=== PATIENT | female | born 1955 | race Caucasian/White ===

== ENCOUNTER 2020-10-18 14:20 | Inpatient (IN) | payer BC ==
[~2020-10-18] VITALS: Ht 154.9 cm; Wt 79.8 kg
--- NOTE | 2020-10-18 15:00 | NUR ---
bib self C/O STABBING PAIN ON RIGHT AND LEFT CALF LAST NIGHT, HAD TROUBLE WALKING. vs checked.
--- NOTE | 2020-10-18 16:21 | NUR ---
COVID SWAB SENT TO LAB
[2020-10-18 16:22] LABS: BASOPHILS # (AUTO) 0.6 /CMM (0.0-0.2); BASOPHILS % (AUTO) 4.2 % (0.0-2.0); EOSINOPHILS % (AUTO) 0.9 % (0.0-6.0); HEMATOCRIT 46 % (33-45); HEMOGLOBIN 15.4 g/dL (11.5-14.8); LYMPHOCYTES % (AUTO) 7.9 % (20.0-44.0); MEAN CORPUSCULAR HGB CONC 34 g/dl (31.0-36.0); MEAN CORPUSCULAR VOLUME 91 fL (82-100); MONOCYTES # (AUTO) 0.6 /CMM (0.1-1.30); MONOCYTES % (AUTO) 4.5 % (2.0-12.0); NEUTROPHILS # (AUTO) 10.8 /CMM (1.8-8.9); NEUTROPHILS % (AUTO) 82.5 % (43.0-81.0); PLATELET COUNT (AUTO) 314 /CMM (150-450); RED BLOOD CELL COUNT(AUTO) 5.05 MIL/uL (4.0-5.2); WHITE BLOOD COUNT (AUTO) 13.1 K/uL (4.3-11.0)
[2020-10-18 16:34] LABS: CALCIUM, SERUM 9.9 mg/dL (8.5-10.1); CARBON DIOXIDE 24 mmol/L (21-32); CHLORIDE 105 mmol/L (98-107); GLUCOSE 110 mg/dL (74-106); POTASSIUM 4.2 mmol/L (3.5-5.1); SODIUM SERUM 140 mmol/L (136-145); UREA NITROGEN, BLOOD 11 mg/dL (7-18)
[2020-10-18] MEDS ORDERED: IOHEXOL-350 100 ML VIAL IV ONE (17:32)
[2020-10-18] MEDS ORDERED: CT SWABBABLE VALVE TRANS SET 1 EA INFUS.SET MC ONE (17:33)
[2020-10-18] MEDS ORDERED: IV NS 0.9% 250 ML IV ONE (17:33)
--- NOTE | 2020-10-18 18:34 | NUR ---
CALLED KATIE ADAME REACHED JUKE BOX MECHANIC [phone]
--- NOTE | 2020-10-18 19:23 | NUR ---
covid swab done sent to lab
[2020-10-18] MEDS ORDERED: HEPARIN INFUSION/D5W 500 ML IV ONE (19:30)
[2020-10-18] MEDS ORDERED: Z GUARD REMEDY 2 OZ OINT TP PRN (20:30)
[2020-10-18] MEDS ORDERED: MAGNESIUM HYDROXIDE 30 ML UDC PO PRN (20:30)
[2020-10-18] MEDS ORDERED: HEPARIN INFUSION/D5W 500 ML IV PRN (20:30)
[2020-10-18] MEDS ORDERED: ACETAMINOPHEN 325 MG TABLET PO PRN (20:30)
[2020-10-18] MEDS ORDERED: MAG HYDROX/AL HYDROX/SIMETH 30 ML UDC PO PRN (20:30)
[2020-10-18] MEDS ORDERED: ONDANSETRON HCL/PF 4 MG/2 ML VIAL IVP PRN (20:30)
--- NOTE | 2020-10-18 20:30 | NUR ---
call from lab. rapid covid negative.
[2020-10-18 21:09] LABS: C-REACTIVE PROTEIN 4.9 mg/dL (0.0-0.9)
--- NOTE | 2020-10-18 22:18 | NUR ---
REPORT GIVEN TO ANASTASIYA CABEZAS FOR ANABEL.
[2020-10-18 22:25] VITALS: BP 142/81
--- NOTE | 2020-10-18 22:31 | NUR ---
PATIENT TAKEN TO ASSIGNED ROOM FOR ANABEL.
[2020-10-18] MEDS ORDERED: DIAZ2TAB3 PO (23:17)
[2020-10-18] MEDS ORDERED: METO25TA4 PO (23:17)
[2020-10-18 23:18] VITALS: BP 142/81
--- NOTE | 2020-10-18 23:18 | NUR ---
COMMISSION ASSOCIATE: ADMISSION 65 year old female A/O x4. Skin intact. Independent with ADLs and mobility, denies any pain at this time. Reports SOB, improved with rest and supplemental Oxygen at 2L via NC. Place call light within reach, instructed on how to use, verbalized understanding.
[2020-10-19] VITALS (7 sets, daily range): BP systolic 118–141; BP diastolic 54–81
[2020-10-19] MEDS ORDERED: ESTR1PAT86 TD (00:26)
[2020-10-19] MEDS ORDERED: PROG100C15 PO (00:26)
[2020-10-19] MEDS ORDERED: MESA500C PO ×2 (00:26)
[2020-10-19] MEDS ORDERED: HYOS0.1275 SL (00:26)
[2020-10-19] MEDS ORDERED: RIFA550T PO (00:26)
[2020-10-19] MEDS ORDERED: ESTR1PAT23 TD (00:26)
[2020-10-19] MEDS ORDERED: CETI-90 PO (00:32)
--- NOTE | 2020-10-19 00:48 | NUR ---
WIRE PREPARATION WORKER: HEPARIN INFUSION Heparin drip infusing at 29ml/hr. Heparin dosing calculated per weight-base protocol, co-signed by RAULITO Garsia.
--- NOTE | 2020-10-19 02:16 | NUR ---
DOCKING PILOT: APTT PTT 69.4. No change per Heparin protocol. Continue on Heparin drip at rate 29ml/hr 1450 units/hr. Next APPT PT/INR 10/19/20 at 1400, lab informed.
--- NOTE | 2020-10-19 06:26 | NUR ---
LOKIE DRIVER: END OF SHIFT REPORT Sinus Rhythm HR 76 in the Tele monitor. Oxygen sat 96% on room air, shortness of breath with exertion improved with Oxygen 2L via NC. No c/o chest pain. Heparin drip infusing at 29ml/hr. No hematuria, no bleeding. Next APTT at 1400. Will endorse to oncoming RN.
[2020-10-19 07:06] LABS: BASOPHILS # (AUTO) 0.1 /CMM (0.0-0.2); BASOPHILS % (AUTO) 0.7 % (0.0-2.0); EOSINOPHILS % (AUTO) 3.9 % (0.0-6.0); HEMATOCRIT 44 % (33-45); HEMOGLOBIN 14.6 g/dL (11.5-14.8); LYMPHOCYTES # (AUTO) 3.2 /CMM (0.8-4.8); LYMPHOCYTES % (AUTO) 30.2 % (20.0-44.0); MEAN CORPUSCULAR HGB CONC 33 g/dl (31.0-36.0); MEAN CORPUSCULAR VOLUME 92 fL (82-100); MONOCYTES % (AUTO) 9.7 % (2.0-12.0); NEUTROPHILS # (AUTO) 5.8 /CMM (1.8-8.9); NEUTROPHILS % (AUTO) 55.5 % (43.0-81.0); PLATELET COUNT (AUTO) 274 /CMM (150-450); RED BLOOD CELL COUNT(AUTO) 4.84 MIL/uL (4.0-5.2); WHITE BLOOD COUNT (AUTO) 10.4 K/uL (4.3-11.0)
[2020-10-19 07:18] LABS: CALCIUM, SERUM 9.3 mg/dL (8.5-10.1); MAGNESIUM 2.6 mg/dL (1.8-2.4); PHOSPHORUS 4.3 mg/dL (2.5-4.9); POTASSIUM 3.6 mmol/L (3.5-5.1)
[2020-10-19 07:36] LABS: THYROID STIMULATING HORMONE 7.413 uIU/mL (0.358-3.74)
--- NOTE | 2020-10-19 08:00 | NUR ---
RN NOTES PT RECEIVED ALERT IN BED ORIENTED X4 NO SIGNS OF PAIN OR DISCOMFORT NOTED OR REPORTED. NO SIGHS OF SOB NOTED. ON 2 L OF OXYGEN VIA NASAL CANULA.. PATIENT HAS A LEFT ARM AC IV ACCESS NO PAIN SWELLING OR REDNESS NOTED. CALL LIGHT WITHIN REACH BED LOCKED IN POSITION. ALL NURSING NEEDS MET AT THIS TIME. WILL CONTINUE TO MONITOR
--- NOTE | 2020-10-19 08:31 | NUR ---
OFFERED ZITHROMAX 250 MG TAB SCANNED AND PT REFUSED. AWAITING FOR RUDDY DOUGHERTY FOR PT'S CLARIFICATION. RUDDY DOUGHERTY MADE AWARE. PT HAS QUESTIONS ABOUT HER HOME MEDS AND WANTS TO SEE THE HOSPITALIST TO CLARIFY HER MEDS.NOTIFIED RUDDY DOUGHERTY.
[2020-10-19] MEDS: PANTOPRAZOLE 40 MG TABLET.DR PO SCH (09:34)
[2020-10-19] MEDS: AZITHROMYCIN 250 MG TABLET PO SCH ×2 (09:34→20:39)
--- NOTE | 2020-10-19 11:00 | NUR ---
WASTED THE ZITHROMAX 250 MG PILL.
--- NOTE | 2020-10-19 12:00 | NUR ---
NOTIFIED RUDDY DOUGHERTY OF PT'S MED RECON NEEDING TO BE DONE AND ALSO,PT'S CONCERN ABOUT HER HOME MEDS,WANTING TO DISCUSS IT WITH HOSPITALIST.RUDDY DOUGHERTY MADE AWARE.
--- NOTE | 2020-10-19 14:00 | NUR ---
DR ESPINOZA CALLED AND ORDERED ELIQUIS PO BID AND TO STOP HEPARIN DRIP TWO HRS BEFORE ADMINISTERING ELIQUIS PO.NOTIFIED YESY,PHARMACIST AND MADE AWARE WELL.
--- NOTE | 2020-10-19 16:35 | NUR ---
PAGED AND CALLED RUDDY DOUGHERTY 3X FOR PT'S CONCERNS REGARDING HER HOME MEDS AND MED RECONCILIATION.PT'S DAUGHTER,GUS CALLED AND EXPRESSED THE SAME CONCERN.PAGED RUDDY DOUGHERTY AWAITING TO RETURN CALL.
--- NOTE | 2020-10-19 17:36 | NUR ---
PT STILL WAITING FOR THE DOCTOR TO LCLARIFY HER MEDS.NOTIFIED RUDDY DOUGHERTY 3X AWAITING HOSPITALIST TO SEE THE PT
[2020-10-19] MEDS: APIXABAN 5 MG TABLET PO SCH (17:39)
--- NOTE | 2020-10-19 18:17 | NUR ---
RN NOTES PT RECEIVED ALERT IN BED ORIENTED X4 NO SIGNS OF PAIN OR DISCOMFORT NOTED OR REPORTED. NO SIGHS OF SOB NOTED. ON 2 L OF OXYGEN VIA NASAL CANULA.. PATIENT HAS A LEFT ARM AC IV ACCESS NO PAIN SWELLING OR REDNESS NOTED.CALL LIGHT WITHIN REACH BED LOCKED IN POSITION. ALL NURSING NEEDS MET AT THIS TIME. WILL CONTINUE TO MONITOR.
--- NOTE | 2020-10-19 18:59 | NUR ---
Patient is alert and pleasant,lives locally alone in a single level home. She is ambulatory and independent with adl's . Family is involved and supportive. Current dc plan is to return home once discharge. Addendum: 10/19/20 at 1859 by GURPREET RODRÍGUEZ RN Amended: Links added.
[2020-10-19] MEDS ORDERED: HYDROCODONE/APAP 5/325MG TABLET PO PRN (19:00)
[2020-10-19] MEDS ORDERED: TEMAZEPAM 15 MG CAPSULE PO PRN (19:00)
[2020-10-19] MEDS ORDERED: HYOSCYAMINE SULFATE 0.125 MG TAB.SUBL SL PRN (19:00)
--- NOTE | 2020-10-19 19:15 | NUR ---
RN NOTES: RECEIVED AWAKE ON BED LYING COMFORTABLY A/OX4, ORIENTED TO UNIT AND STAFF. FALL,SAFETY AND ASPIRATION PRECAUTION OBSERVED, ON CREDIT RISK REVIEW OFFICER SR-88, NO PAIN OR DISCOMFORT, CONTINUE TO OBSERVED FOR ANY SIGN OF RESPIRATORY DISTRESS OR SOB, PATIENT COMMUNICATE WELL AND EXPRESS HER CONCERN REGARDING HER MEDICATION. -SHE PREFER TO TAKE PENTASA NOT MESALAMINE. Addendum: 10/19/20 at 2158 by ABHILASH JEWELL RN ADDED NOTES: ON O2 AT 2L/MIN SPO2-95%
[2020-10-19] MEDS ORDERED: DIAZEPAM 5 MG TABLET PO PRN (19:30)
--- NOTE | 2020-10-19 19:30 | NUR ---
RN NOTES: PHARMACY CALLED SPOKE WITH MARLENY AND EXPLAINED TO HIM PATIENT REQUEST AND PREFERRED NAME BRAND PENTASA, HE EXPLAINED WE DONT HAVE AVAILABLE OF WHAT SHE WANT BUT SHE CAN BRING HER OWN MEDICATION AND WE CAN VERIFY AND GIVE IT TO HER. -PATIENT AGREED AND SHE WILL ASK ONE OF HER FAMILY MEMEBER TO BRING IT BEFORE 2100.
[2020-10-19] MEDS ORDERED: MESALAMINE 250 MG CAPSULE.SA PO SCH (20:00)
--- NOTE | 2020-10-19 20:08 | NUR ---
RN NOTES: PATIENT CLAIMED THAT SHE DID NOT RECEIVED HER AZITHROMAX DOSE THIS MORNING BECAUSE SHE WAS HESITANT TO TAKE IT, AFTER VERIFYING WITH HER RELATIVE WHO IS A DOCTOR NOW SHE IS REQUESTING TO GET HER DOSE. -F/U WITH TIANA/RN IN THE MORNING IF MEDICATION WAS GIVEN AND SHE SAID"PATIENT REFUSED, SHE WAS WAITING FOR FARHAT TO SEE HER" -CALLED PHARMACY SPOKE WITH MARLENY AND CONFIRMED TO HIM, MEDICATION WAS NOT GIVEN IN THE MORNING, IF HE CAN RELEASE THE MEDICATION SO THAT WE CAN GIVE IT PER PATIENT REQUEST.
[2020-10-19] MEDS: METOPROLOL SUCCINATE 25 MG TAB.SR.24H PO SCH (20:38)
[2020-10-19] MEDS: RIFAXIMIN 550 MG TABLET PO SCH (20:38)
--- NOTE | 2020-10-19 20:40 | NUR ---
RN NOTES: PATIENT REQUEST TO TAKE HER NORCO NOW FOR HEADACHE ALONG WITH HER OTHER MEDICATION, BP CHECKED--137/74 WI-78, METOPROLOL,XIFACAN AND AZITHROMAX(PHARMACY AWARE MORNING DOSE WAS NOT GIVEN, PATIENT WANT HER DOSE NOW) GIVEN.
--- NOTE | 2020-10-19 20:58 | NUR ---
RN NOTES: FAMILY BROUGHT PATIENT OWN MEDICATION PENTAZA(MESALAMINE) 1 BOTTLE, GIVEN TO PHARMACY FOR VERIFICATION, RECEIVED BY MARLENY.AWAITNG FOR PHARMACY TO DELIVER BACK IN MS-3W.
[2020-10-19] MEDS ORDERED: PENTASA 500 MG PO SCH (21:00)
[2020-10-19] MEDS ORDERED: MESALAMINE 400 MG CAP PO SCH (21:00)
--- NOTE | 2020-10-19 21:23 | NUR ---
RN NOTES: PATIENT MEDICATION PENTASA RELEASED BY PHARMACY, GIVEN ALONG WITH VALIUM 1/2 TABLET PER PATIENT REQUEST.
--- NOTE | 2020-10-19 21:30 | NUR ---
RN NOTES: PATIENT EXPRESS HER GRATITUDE THAT HER MEDICATION WAS FACILITATED, EXPLAINED TO HER PENTAZA WILL BE RELEASED DAILY AND SHE CAN GET HER MEDICATION BACK UPON HER DISCHARGE DAY.
--- NOTE | 2020-10-19 21:31 | NUR ---
RN NOTES: -AT 1999 ROD NOTIFIED PATIENT REQUEST FOR MTHFR TEST, SHE EXPLAINED THAT HER BROTHER HAS THAT DEFICIENCY, SHE WANTS TO BE CHECKED ALSO, ROD SAID WILL LET DR. ROBERTSON SEE HER FIRST THEN WILL DECIDE FOR MORE EXTENSIVE HYPERCOAGULABLE WORK OUT. -WILL ENDORSED TO F/U IN THE MORNING.
--- NOTE | 2020-10-19 21:58 | NUR ---
SALES AND MARKETING VICE PRESIDENT CONTINUITY OF CARE NOTES RECEIVED PATIENT FROM RN CHEMO, AWAKE ALERT AND ORIENTED X4 RESPIRATIONS EVEN AND UNLABORED WITH EQUAL RISE AND FALL OF CHEST, DENIES ANY PAIN AT THIS TIME, STATES NORCO THAT WAS GIVEN IS HELPFUL. IV SITE TO LEFT AC#20 G INTACT AND PATENT NO REDNESS, NO INFILTRATION PRESENT, ORIENTED TO STAFF AND CALL LIGHT AND KEPT WITHIN REACH LOW BED AND LOCKED, SNACKS OFFERED, ALL NEEDS ATTENDED WILL CONTINUE TO MONITOR.
--- NOTE | 2020-10-19 21:58 | NUR ---
RN NOTES: ENDORSE TO RAJAN/RAULITO FOR CONTINUITY OF CARE.
[2020-10-20] VITALS: BP 105/61
[2020-10-20 04:00] VITALS: BP 112/70
--- NOTE | 2020-10-20 06:43 | NUR ---
SCAFFOLDING HELPER CLOSING NOTES PATIENT IN BED AWAKE ALERT AND ORIENTED X4 RESPIRATIONS EVEN AND UNLABORED WITH EQUAL RISE AND FALL OF CHEST, DENIES ANY PAIN AT THIS TIME. IV SITE TO LEFT AC#20 G INTACT AND PATENT NO REDNESS, NO INFILTRATION PRESENT, CURRENTLY ON ROOM AIR TOLERATING WELL 95 %, CALL LIGHT KEPT WITHIN REACH LOW BED AND LOCKED, UA COLLECTED PLACED IN FRIG FOR NEW GRAD RN,SNACKS OFFERED, ALL NEEDS ATTENDED WILL CONTINUE TO MONITOR AND ENDORSE TO NEXT SHIFT, CUSTOMER ENGAGEMENT REPRESENTATIVE SR 68.
--- NOTE | 2020-10-20 07:30 | NUR ---
RADIOTELEGRAPH OPERATOR SERVICER OPENING NOTES BEDSIDE ENDORSEMENT DONE. PATIENT IS IN BED RESTING, AWAKE AND VERBALLY RESPONSIVE. ALERT AND ORIENTED X4, ABLE TO MAKE NEEDS KNOWN. BREATHING EVEN AND UNLABORED. IV SITE TO LEFT AC #20 INTACT AND PATENT. SAFETY PRECS IN PLACE: BED LOCKED AND ON LOWEST POSITION, CALL LIGHT W/IN REACH, SR UP X2. WILL CONTINUE TO MONITOR.
[2020-10-20 08:00] VITALS: BP 127/74
[2020-10-20 08:59] LABS: BILIRUBIN,URINE NEGATIVE (NEGATIVE); BLOOD, URINE TRACE-INTA Ery/uL (NEGATIVE); COLOR,URINE DARK YELLOW (YELLOW); LEUKOCYTE ESTERASE ,URINE TRACE (NEGATIVE); NITRITE, URINE NEGATIVE (NEGATIVE); PH,URINE 5.5 (5.0-8.0); PROTEIN,URINE NEGATIVE (NEGATIVE); UGLUCOSE NEGATIVE (NEGATIVE); UROBILINOGEN,URINE 0.2 EU/dL (0.2)
[2020-10-20] MEDS ORDERED: cetrizine 10 MG TABLET PO SCH (09:00)
[2020-10-20] MEDS ORDERED: CITRUCEL PO SCH (09:00)
[2020-10-20 09:05] LABS: BACTERIA,URINE Few /HPF (None Seen); RBC,URINE 0-2 /HPF (0-2); YEAST,URINE Rare /HPF (None Seen)
[2020-10-20 09:06] LABS: SQUAMOUS EPITHELIAL CELL,UR Moderate /HPF (None Seen)
[2020-10-20] MEDS: RIFAXIMIN 550 MG TABLET PO SCH ×2 (09:52→17:01)
[2020-10-20] MEDS: METOPROLOL SUCCINATE 25 MG TAB.SR.24H PO SCH (09:53)
[2020-10-20] MEDS: APIXABAN 5 MG TABLET PO SCH ×2 (09:55→17:02)
[2020-10-20] MEDS: PANTOPRAZOLE 40 MG TABLET.DR PO SCH (09:57)
[2020-10-20] MEDS ORDERED: TEMA15CA5 PO (10:24)
[2020-10-20] MEDS ORDERED: OMEP20TA20 PO (10:24)
[2020-10-20] MEDS ORDERED: HYDR-4384 PO (10:24)
[2020-10-20] MEDS ORDERED: BUTA1CAP5 PO (10:48)
--- NOTE | 2020-10-20 13:00 | NUR ---
RN NOTES PATIENT WAS SEEN EARLIER BY DR. OLIVARES AND PROVIDED EDUCATION AND INSTRUCTIONS REGARDING MEDICATIONS AND DISCHARGE.
[2020-10-20 16:00] VITALS: BP 145/88
--- NOTE | 2020-10-20 19:38 | NUR ---
LEAD TECHNICAL ARCHITECT NOTES DISCHARGE INSTRUCTION AND EDUCATION GIVEN TO PATIENT; VERBALIZED UNDERSTANDING. BELONGINGS LIST AND DISCHARGE FORM SIGNED BY PATIENT. PROVIDED INFORMATION OF DR. HERNANDEZ AND DR. ROBERTSON FOR INTERNAL MEDICINE AND ONCO CONSULT, RESPECTIVELY. NAME ARMBAND AND IV LINE REMOVED. NO SKIN ISSUES NOTED. ACCOMPANIED PATIENT TO THE LOBBY AND PICKED UP BY FAMILY. CHARGE NURSE AND MD AWARE OF DISCHARGE.
[2020-10-23 07:10] LABS: PROTEIN C ACTIVITY 140 % (73-180)
[2020-10-24 01:06] LABS: *CARD ANTI-CARDIOLIPIN AB IgG <9 GPL U/mL (0-14); *CARD ANTI-CARDIOLIPIN AB IgM 9 MPL U/mL (0-12)
[2020-10-26] MEDS ORDERED: APIXABAN 5 MG TABLET PO SCH (17:00)
== END 2020-10-20 19:10 | disposition home or self-care (01) | DRG 176 ==
LOC: ER 14:22 → TELE 21:30
PROVIDERS: ADMIT Registered Nurse; ATTEND Nurse Practitioner Acute Care
DX: I26.99 Other pulmonary embolism without acute cor pulmonale (principal); J90 Pleural effusion, not elsewhere classified; K50.90 Crohn's disease, unspecified, without complications; D72.829 Elevated white blood cell count, unspecified; E04.1 Nontoxic single thyroid nodule; E66.9 Obesity, unspecified; Z68.34 Body mass index [BMI] 34.0-34.9, adult; I10 Essential (primary) hypertension; Z91.018 Allergy to other foods; E27.8 Other specified disorders of adrenal gland; Z79.890 Hormone replacement therapy; R42 Dizziness and giddiness; K44.9 Diaphragmatic hernia without obstruction or gangrene
CPT/HCPCS: 36415; 71045-TC; 80048-TC; 80061-TC; 81001; 82550-TC; 82728-TC; 83540-TC; 83615-TC; 83735-TC; 84100-TC; 84439-TC; 84443-TC; 84484-TC; 85025-TC; 85303; 85378-TC; 85610-TC; 85730-TC; 86140-TC; 86147; 87081-TC; 93971-TC; C9803; G0378; J1644; J2405; J7050; Q9967; U0003

== ENCOUNTER 2020-12-24 16:28 | Inpatient (IN) | payer BC ==
[~2020-12-24] VITALS: Ht 154.9 cm; Wt 80.5 kg
[~2020-12-24 16:28] MED LIST: BUTA1CAP5 PO; CETI-90 PO; DIAZ2TAB3 PO; HYDR-4384 PO; HYOS0.1275 SL; MESA500C PO; METO25TA4 PO; OMEP20TA20 PO; RIFA550T PO; TEMA15CA5 PO
--- NOTE | 2020-12-24 16:38 | NUR ---
CAME IN FOR INTERMITTENT MID-CHEST PRESSURE R/T BACK. SOB x 2 DAYS, WORSE TODAY. ALSO C/O NAUSEA. TO ER BED 11, HOOKED TO INDUSTRIAL SEWER, BP CUFF AND POX. CHANGED TO HOSP GOWN, WARM BLANKET PROVIDED, PATIENT AAO x 4. BREATHING EVEN AND UNLABORED. AWAITING MD POLANCO.
--- NOTE | 2020-12-24 16:48 | NUR ---
DR FARMER AT BEDSIDE
[2020-12-24 17:13] LABS: BASOPHILS # (AUTO) 0.1 /CMM (0.0-0.2); BASOPHILS % (AUTO) 1.1 % (0.0-2.0); EOSINOPHILS % (AUTO) 1.9 % (0.0-6.0); HEMATOCRIT 44 % (33-45); HEMOGLOBIN 14.8 g/dL (11.5-14.8); LYMPHOCYTES # (AUTO) 2.1 /CMM (0.8-4.8); LYMPHOCYTES % (AUTO) 17.8 % (20.0-44.0); MEAN CORPUSCULAR HGB CONC 34 g/dl (31.0-36.0); MEAN CORPUSCULAR VOLUME 89 fL (82-100); MONOCYTES # (AUTO) 0.7 /CMM (0.1-1.30); MONOCYTES % (AUTO) 5.7 % (2.0-12.0); NEUTROPHILS # (AUTO) 8.7 /CMM (1.8-8.9); NEUTROPHILS % (AUTO) 73.5 % (43.0-81.0); PLATELET COUNT (AUTO) 196 /CMM (150-450); RED BLOOD CELL COUNT(AUTO) 4.97 MIL/uL (4.0-5.2); WHITE BLOOD COUNT (AUTO) 11.9 K/uL (4.3-11.0)
[2020-12-24 17:35] LABS: D-DIMER 2.8 mg/L(FEU (0.17-0.50)
[2020-12-24 18:00] LABS: CALCIUM, SERUM 9.4 mg/dL (8.5-10.1); POTASSIUM 3.5 mmol/L (3.5-5.1)
--- NOTE | 2020-12-24 18:40 | NUR ---
MOVE SHEET SUBMITTED AND CALLED FOR TELE BED.
[2020-12-24] MEDS ORDERED: OMEP20CA15 PO (18:44)
[2020-12-24] MEDS ORDERED: MELA3TAB41 PO (18:44)
[2020-12-24] MEDS ORDERED: APIX5TAB PO (18:44)
[2020-12-24] MEDS ORDERED: METH500T4 PO (18:44)
[2020-12-24] MEDS ORDERED: NITROGLYCERIN PACKET 1 GM PACKET TOP ONE (19:00)
[2020-12-24] MEDS ORDERED: ASPIRIN 81 MG TAB.CHEW ONE (19:00)
[2020-12-24] MEDS ORDERED: ASPIRIN 81 MG TAB.CHEW PO ONE (19:00)
[2020-12-24] MEDS ORDERED: NITROGLYCERIN PACKET 1 GM PACKET ONE (19:00)
--- NOTE | 2020-12-24 19:12 | NUR ---
VERIFIED W DR FARMER, PATIENT ON ELIQUIS 5MG BID, OK TO GIVE ASPIRIN
--- NOTE | 2020-12-24 19:27 | NUR ---
CALLED LAB REGARDING COVID SWAB.
--- NOTE | 2020-12-24 19:30 | NUR ---
REPORT GIVEN TO MYRNA CABEZAS FOR ANABEL
--- NOTE | 2020-12-24 19:38 | NUR ---
VINHID SWABBED, SENT TO LAB.
--- NOTE | 2020-12-24 19:42 | NUR ---
SPOKE TO THE PT. PT AWARE OF BEING ADMITTED. PT DENIES ANY CP. VITALS STABLE, SAT 94% ROOM AIR. PT PREFERS TO BE ON NC. NC PLACED ON PT 2L SAT 99%. NO ACUTE DISTRESS NOTED.
--- NOTE | 2020-12-24 21:03 | NUR ---
REPORT GIVEN TO RAYRAY CABEZAS FOR ANABEL
[2020-12-24 21:40] VITALS: BP 138/82
--- NOTE | 2020-12-24 21:50 | NUR ---
PT TRANSFERED PER ACLS PROTOCOL
[2020-12-24 22:32] VITALS: BP 138/82
[2020-12-25] MEDS ORDERED: MAG HYDROX/AL HYDROX/SIMETH 30 ML UDC PO PRN (00:30)
[2020-12-25] MEDS ORDERED: MAGNESIUM HYDROXIDE 30 ML UDC PO PRN (00:30)
[2020-12-25] MEDS ORDERED: ZOLPIDEM TARTRATE 5 MG TABLET PO PRN (00:30)
[2020-12-25] MEDS ORDERED: HYDROCODONE/APAP 5/325MG TABLET PO PRN (00:30)
[2020-12-25] MEDS ORDERED: NITROGLYCERIN 0.4 MG/TAB BOTTLE SL PRN (00:30)
[2020-12-25] MEDS ORDERED: Z GUARD REMEDY 2 OZ OINT TP PRN (00:30)
[2020-12-25] MEDS ORDERED: ONDANSETRON HCL/PF 4 MG/2 ML VIAL IVP PRN (00:30)
[2020-12-25] MEDS: IV 1/2NS 1000 ML 1,000 ML IV PRN ×2 (01:06→14:17)
[2020-12-25] MEDS: ACETAMINOPHEN 325 MG TABLET PO PRN ×4 (01:08→23:05)
[2020-12-25 01:18] LABS: THYROID STIMULATING HORMONE 2.26 uIU/mL (0.358-3.74)
[2020-12-25 04:00] VITALS: BP 106/48
[2020-12-25 04:21] VITALS: BP 106/48
--- NOTE | 2020-12-25 05:31 | NUR ---
closing notes: alert and orientated x4 steady on her legs sinus rhythm sinus paty HR 54 -76 thru the night NO SOB NO C/O CHESTPAIN TROPS ELEVATED LAST TROP 0.2 PAINT AND TABLE EDGER TATIANNA WAS UP TO SEE HER LAST NIGHT ABOUT MIDNIGHT KEPT NPO UNTIL THE CARDIO SEES HER THIS AM SHE IS AWARE
--- NOTE | 2020-12-25 07:15 | NUR ---
BELT POLISHER OPENING NOTES PATIENT IN BED. A/O X4. NO SOB NOTED. IN NO APPARENT DISTRESS. BREATHING IS EVEN AND UNLABORED. IV ACCESS ON R HAND #20 G, INTACT AND PATENT, 1/2 NS RUNNING @ 75 ML/HR. SAFETY MEASURES MAINTAINED. BED IN LOWEST POSITION, BRAKES LOCKED. SIDE RAILS UP X2. CALL LIGHT WITHIN REACH. WILL CONTINUE PLAN OF CARE.
[2020-12-25] MEDS: PANTOPRAZOLE 40 MG TABLET.DR PO SCH (07:30)
[2020-12-25 08:18] VITALS: BP 130/79
[2020-12-25] MEDS: ASPIRIN EC 81 MG TABLET.DR PO SCH (09:00)
--- NOTE | 2020-12-25 10:55 | NUR ---
STILL CLEANER TUBE NOTES DR CLARK ORDERED TO OBTAIN CONSENT FOR CARDIAC CATH AND NPO AFTER MIDNIGHT. ORDERED TO PUT THE PT ON CARDIAC DIET FOR NOW.
--- NOTE | 2020-12-25 11:32 | NUR ---
GLASS CUT OFF SUPERVISOR NOTES CONSENTS WERE OBTAINED.
--- NOTE | 2020-12-25 11:33 | NUR ---
SALES SUPPORT ENGINEER NOTES PT ON DVT PUMP ON BOTH LEGS.
[2020-12-25 12:00] VITALS: BP 141/73
[2020-12-25] MEDS ORDERED: HEPARIN SODIUM, PORCINE 5000 UNITS/1 ML VIAL IV ONE (14:00)
[2020-12-25] MEDS: HEPARIN INFUSION/D5W 500 ML IV PRN ×2 (14:03→23:10)
[2020-12-25 16:00] VITALS: BP 133/75
--- NOTE | 2020-12-25 18:36 | NUR ---
VERIFICATION SPECIALIST CLOSING NOTES PATIENT IN BED. A/O X4. AFEBRILE. NO SOB NOTED. NO S/S OF RESPIRATORY DISTRESS. IV ACCESS ON R HAND #20, INTACT HEPARIN DRIP ONGOING, RUNNING @ 24 ML/HR. ALL NEEDS HAVE BEEN MET. ROUTINE MEDS WERE GIVEN ORDERED. SAFETY MEASURES MAINTAINED. BED IN LOWEST POSITION, BRAKES LOCKED. SIDE RAILS UP X2. CALL LIGHT WITHIN REACH. WILL ENDORSE TO [facility] FOR ANABEL.
--- NOTE | 2020-12-25 19:00 | NUR ---
RECEIVED AWAKE AND ALERT ORIENTATEDX4 MOVED TO ROOM 316 - 1 D/T CALL LIGHT BROKEN IN ROOM 320 - 2 SHE IS AWARE SHE IS SCHEDULED FOR am PROCEDURE HEART CATH IN THE AM HEPARIN GTT AT 1200 UNITS /24 ML AT THIS TIME
[2020-12-25 20:00] VITALS: BP 153/87
--- NOTE | 2020-12-26 01:53 | NUR ---
latest Trop 0.709 texted MD HUBER with the test result
--- NOTE | 2020-12-26 04:46 | NUR ---
ENDING NOTES: NPO THRU THE NIGJHT AWARE SHE IS TO HAVE A HEART CATH THIS AM ABOUT 11 AM. HEPARIN GETT AT 950 UNITS /19ML HR CHANGE MADE AT 2200 WHEN PTT CAME BACK 102.9. SHE IS ALERT AND ORIENTATED X4. LATEST TROP WAS 0.709 TEXT TO NOTIFY MD DOUGLASS WAS SENT AND ACKNOWLEDGED
[2020-12-26 07:06] LABS: BASOPHILS # (AUTO) 0.1 /CMM (0.0-0.2); BASOPHILS % (AUTO) 0.9 % (0.0-2.0); EOSINOPHILS % (AUTO) 3.4 % (0.0-6.0); HEMATOCRIT 41 % (33-45); HEMOGLOBIN 13.8 g/dL (11.5-14.8); LYMPHOCYTES # (AUTO) 3.2 /CMM (0.8-4.8); LYMPHOCYTES % (AUTO) 27.9 % (20.0-44.0); MEAN CORPUSCULAR HGB CONC 34 g/dl (31.0-36.0); MEAN CORPUSCULAR VOLUME 89 fL (82-100); MONOCYTES # (AUTO) 0.9 /CMM (0.1-1.30); MONOCYTES % (AUTO) 8.1 % (2.0-12.0); NEUTROPHILS # (AUTO) 6.8 /CMM (1.8-8.9); NEUTROPHILS % (AUTO) 59.7 % (43.0-81.0); PLATELET COUNT (AUTO) 199 /CMM (150-450); RED BLOOD CELL COUNT(AUTO) 4.64 MIL/uL (4.0-5.2); WHITE BLOOD COUNT (AUTO) 11.4 K/uL (4.3-11.0)
[2020-12-26 07:28] LABS: CALCIUM, SERUM 8.3 mg/dL (8.5-10.1); MAGNESIUM 2.4 mg/dL (1.8-2.4); PHOSPHORUS 3.8 mg/dL (2.5-4.9); POTASSIUM 3.7 mmol/L (3.5-5.1)
[2020-12-26] MEDS: PANTOPRAZOLE 40 MG TABLET.DR PO SCH ×2 (07:30→18:13)
--- NOTE | 2020-12-26 07:30 | NUR ---
ms rn received on bed, awake,alert,oriented x4,not in any form of distress, respirations even and unlabored,no sob noted,lungs are clear,abdomen soft,positive bowel sounds,denies pain at this time, on heparin drip at 1200 units pe hour infusing well.
[2020-12-26 08:00] VITALS: BP 148/96
--- NOTE | 2020-12-26 08:00 | NUR ---
ms dobbs aptt-53- no change on heparin drip rate
[2020-12-26] MEDS: ASPIRIN EC 81 MG TABLET.DR PO SCH (08:35)
--- NOTE | 2020-12-26 09:00 | NUR ---
ms rn patient on npo will have cadiac cath today.
--- NOTE | 2020-12-26 10:00 | NUR ---
ms dobbs heparin drip dc for cardiac cath.
[2020-12-26] MEDS ORDERED: NITROGLYCERIN ICAR 1,000 MCG/10 ML VIAL ICAR ONE (10:26)
[2020-12-26] MEDS ORDERED: LIDOCAINE HCL/MPF 1% 30 ML VIAL IJ ONE (10:26)
--- NOTE | 2020-12-26 10:30 | NUR ---
ms rn patient went down for procedure.
[2020-12-26] MEDS ORDERED: FENTANYL PF 100MCG/2ML AMPUL ONE (10:57)
[2020-12-26] MEDS ORDERED: MIDAZOLAM HCL 2 MG/2ML VIAL ONE (10:57)
[2020-12-26] MEDS ORDERED: IV NS 0.9% 1,000 ML ONE (11:00)
[2020-12-26] MEDS ORDERED: IV SET PRIMARY PUMP SET 1 EA INFUS.SET MC ONE ×2 (11:00→11:10)
[2020-12-26] MEDS ORDERED: IV NS 0.9% 50 ML IV ONE (11:10)
[2020-12-26] MEDS ORDERED: IODIXANOL 150 ML IV ONE (11:10)
--- NOTE | 2020-12-26 11:30 | NUR ---
ms rn patient came back, awake,alert,oriented x4,not in any form of distress, tr band at right wrist, clean and dry,no active bleeding at this time.
--- NOTE | 2020-12-26 11:50 | NUR ---
ms dobbs 3ml of air was released at tr band, no bleeding noted.
--- NOTE | 2020-12-26 13:50 | NUR ---
ms rn 3ml of air realeased again, no bleeding noted at tr band.
[2020-12-26] MEDS: ACETAMINOPHEN 325 MG TABLET PO PRN (13:58)
[2020-12-26] MEDS ORDERED: HYOSCYAMINE SULFATE 0.125 MG TAB.SUBL SL PRN (14:30)
[2020-12-26] MEDS ORDERED: Medication Not On Formulary EA (Melatonin 3 MG) PO PRN (14:30)
[2020-12-26] MEDS ORDERED: BENEFIBER 4 GM 1 EA PACKET PO PRN (15:00)
[2020-12-26] MEDS ORDERED: LORAZEPAM 1 MG TABLET PO PRN (15:00)
[2020-12-26] MEDS: APIXABAN 5 MG TABLET PO SCH ×2 (15:00→22:36)
--- NOTE | 2020-12-26 15:50 | NUR ---
ms rn 3 ml of air released,but site started to bleed a little,dr. neil was notified,held eliquis at this time.
--- NOTE | 2020-12-26 17:00 | NUR ---
ms rn 3ml released- no bleeding noted.
[2020-12-26] MEDS ORDERED: cetrizine 10 MG TABLET PO SCH (18:00)
--- NOTE | 2020-12-26 18:00 | NUR ---
ms dobbs 3ml- released- no bleeding noted.
[2020-12-26] MEDS: RIFAXIMIN 550 MG TABLET PO SCH (18:12)
[2020-12-26] MEDS: METOPROLOL SUCCINATE 25 MG TAB.SR.24H PO SCH (18:13)
--- NOTE | 2020-12-26 19:30 | NUR ---
ms rn 3ml released, no bleeding, endorsed to weight shifter for further management, left hand within normal color,no evidence of occlusion, patient can feel and circulation ok.
--- NOTE | 2020-12-26 19:38 | NUR ---
SALES AND LEASING AGENT: CONTINUITY OF CARE Patient in bed, awake, A/O x4. Sinus rhythm in the Tele monitor. Right wrist TR Band device in place, no bleeding in right wrist site. No c/o pain. Stable Oxygen saturation in room air. Fall precaution maintained.
[2020-12-26 20:00] VITALS: BP 161/103
--- NOTE | 2020-12-26 20:40 | NUR ---
MS RN: TR Band 3ml air released from TR Band device, no bleeding noted. Right hand CSM intact, denies pain.
[2020-12-26] MEDS ORDERED: MESALAMINE 250 MG CAPSULE.SA PO SCH (22:00)
[2020-12-26] MEDS ORDERED: MESALAMINE 400 MG CAP PO SCH (22:00)
--- NOTE | 2020-12-26 22:23 | NUR ---
CHILD STUDY TEAM DIRECTOR: Patient refused to take Mesalamine/Delzicol, education provided, verbalized understanding. Patient stated she brought her own Mesalamine/Pent[facility] but close at this time. Will f/u in am.
[2020-12-26] MEDS ORDERED: hydrALAZINE HCL IV 20 MG VIAL IV PRN (22:30)
[2020-12-26] MEDS: IV 1/2NS 1000 ML 1,000 ML IV PRN (22:37)
--- NOTE | 2020-12-26 22:40 | NUR ---
LABORATORY VETERINARIAN: ANTICOAGULANT H/H 13.8/14.1 Platelet [address] Woodson, per okay to give dose now. Eliquis given co-signed by RAULITO Garsia.
--- NOTE | 2020-12-26 22:57 | NUR ---
BRICK SORTER: BP Elevated BP 175/95 Pulse 68 given Hydralazine IV, will reassess.
[2020-12-27] VITALS: BP 147/98
[2020-12-27 00:56] VITALS: BP 147/98
[2020-12-27 04:00] VITALS: BP 143/75
[2020-12-27 05:10] VITALS: BP 143/78
--- NOTE | 2020-12-27 06:17 | NUR ---
VALUE ENGINEER: END OF SHIFT REPORT Stable Oxygen saturation in room air. Sinus rhythm HR 64 in the Tele monitor. IVF infusing. BP improving 143/78 no c/o chest pain. Ambulated to the bathroom, voided urine. Denies N/V. Will endorse to oncoming RN.
[2020-12-27] MEDS ORDERED: OMEPRAZOLE 20 MG CAPSULE.DR PO SCH (07:30)
--- NOTE | 2020-12-27 07:59 | NUR ---
CATEGORY DIRECTOR OPENING NOTES RECEIVED PATIENT IN BED, AWAKE, A/O X4. PATIENT ON ROOM AIR; BREATHING EVEN AND UNLABORED; NO SOB NOTED AT THIS TIME. NO COMPLAINS OF PAIN AT THIS TIME. LAC IV ACCESS PRESENT AND INTACT INFUSING 1/2 NS @ 75 MLS/HR. PATIENT S/P L HEART CATHETERIZATION; TR BAND REMOVED YESTERDAY 12/26/2020; NO BLEEDING NOTED. SAFETY PRECAUTIONS IN PLACE; BED IN LOW POSITION AND LOCKED, RAILS UP X2, CALL LIGHT WITHIN REACH. WILL CONTINUE TO MONITOR PATIENT.
[2020-12-27 08:00] VITALS: BP 152/92
[2020-12-27 08:34] VITALS: BP 152/92
[2020-12-27] MEDS: RIFAXIMIN 550 MG TABLET PO SCH (08:34)
[2020-12-27] MEDS: METOPROLOL SUCCINATE 25 MG TAB.SR.24H PO SCH (08:34)
[2020-12-27] MEDS: PANTOPRAZOLE 40 MG TABLET.DR PO SCH (08:34)
[2020-12-27] MEDS: ASPIRIN EC 81 MG TABLET.DR PO SCH (08:35)
[2020-12-27] MEDS: APIXABAN 5 MG TABLET PO SCH (08:35)
[2020-12-27] MEDS: ACETAMINOPHEN 325 MG TABLET PO PRN (08:43)
--- NOTE | 2020-12-27 08:43 | NUR ---
PRECISION ASSEMBLER BENCH NOTES PATIENT COMPLAINING OF HEADACHE REQUESTING TYLENOL. PRN TYLENOL ADMINISTERED.
[2020-12-27] MEDS ORDERED: METOPROLOL SUCCINATE 25 MG TAB.SR.24H PO SCH (09:00)
--- NOTE | 2020-12-27 13:43 | NUR ---
MS GROOVING MACHINE OPERATOR NOTES PATIENT DISCHARGED HOME IN MEDICALLY STABLE CONDITION. PATIENT A/O X4 OR ROOM AIR. ALL DISCHARGE PAPERWORK READY AND SIGNED BY PATIENT. DOCTORS INSTRUCTIONS PROVIDED; PATIENT VERBALIZED UNDERSTANDING. VALUABLES AND BELONGINGS ACCOUNTED FOR AND FORM SIGNED BY PATIENT WELL. PERSONAL MEDICATION PICKED UP FROM PHARMACY AND RETURNED TO THE PATIENT. BEFORE LEAVING THE UNIT IV ACCESS WAS REMOVED. PATIENT LEFT THE FLOOR AT 13:30 VIA WHEELCHAIR ACCOMPANIED BY RN. PATIENT MET OUTSIDE BY FAMILY AND LEFT IN A PRIVATE CAR.
== END 2020-12-27 13:30 | disposition home or self-care (01) | DRG 281 ==
LOC: ER 16:32 → TELE 20:49 → UNDODISIN 12-26 13:15 → MED 12-27 13:09
PROVIDERS: ADMIT Student in an Organized Health Care Education/Training Program; ATTEND Hospitalist
PROC: 4A023N7 Measurement of Cardiac Sampling and Pressure, Left Heart, Percutaneous Approach (ICD-10-PCS; principal; 2020-12-26)
PROC: B211YZZ Fluoroscopy of Multiple Coronary Arteries using Other Contrast (ICD-10-PCS; 2020-12-26)
PROC: B215YZZ Fluoroscopy of Left Heart using Other Contrast (ICD-10-PCS; 2020-12-26)
DX: I21.4 Non-ST elevation (NSTEMI) myocardial infarction (principal); D68.59 Other primary thrombophilia; K50.90 Crohn's disease, unspecified, without complications; D72.829 Elevated white blood cell count, unspecified; I25.10 Atherosclerotic heart disease of native coronary artery without angina pectoris; E66.9 Obesity, unspecified; Z68.33 Body mass index [BMI] 33.0-33.9, adult; Z79.01 Long term (current) use of anticoagulants; I10 Essential (primary) hypertension; Z86.711 Personal history of pulmonary embolism; Z82.49 Family history of ischemic heart disease and other diseases of the circulatory system; E04.1 Nontoxic single thyroid nodule; Z91.018 Allergy to other foods; Z79.899 Other long term (current) drug therapy; R42 Dizziness and giddiness; Z98.890 Other specified postprocedural states
CPT/HCPCS: 36415; 71045-TC; 80048-TC; 80061-TC; 83735-TC; 83880; 84100-TC; 84443-TC; 84484-TC; 85025-TC; 85378-TC; 85730-TC; 87081-TC; 93307-TC; C9803; G0378; G0500; J0360; J1644; J2250; J2405; J3010; J3490; J7070; Q9967

== ENCOUNTER 2020-12-31 12:33 | Emergency (ER) | payer BC ==
[~2020-12-31] VITALS: Ht 157.5 cm; Wt 74.8 kg
[~2020-12-31 12:33] MED LIST changes: +APIX5TAB PO; -BUTA1CAP5 PO; -HYDR-4384 PO; +MELA3TAB41 PO; +METH500T4 PO; +OMEP20CA15 PO; -OMEP20TA20 PO; -TEMA15CA5 PO
--- NOTE | 2020-12-31 12:47 | NUR ---
right upper arm numbness today - sent by Dr. Woodson for evaluation
[2020-12-31 13:08] LABS: BASOPHILS # (AUTO) 0.1 /CMM (0.0-0.2); EOSINOPHILS % (AUTO) 2.5 % (0.0-6.0); HEMATOCRIT 43 % (33-45); HEMOGLOBIN 14.3 g/dL (11.5-14.8); LYMPHOCYTES # (AUTO) 1.5 /CMM (0.8-4.8); LYMPHOCYTES % (AUTO) 13.6 % (20.0-44.0); MEAN CORPUSCULAR HGB CONC 33 g/dl (31.0-36.0); MEAN CORPUSCULAR VOLUME 89 fL (82-100); MONOCYTES # (AUTO) 0.8 /CMM (0.1-1.30); NEUTROPHILS # (AUTO) 8.5 /CMM (1.8-8.9); NEUTROPHILS % (AUTO) 75.9 % (43.0-81.0); PLATELET COUNT (AUTO) 187 /CMM (150-450); RED BLOOD CELL COUNT(AUTO) 4.83 MIL/uL (4.0-5.2); WHITE BLOOD COUNT (AUTO) 11.2 K/uL (4.3-11.0)
[2020-12-31 13:14] LABS: CALCIUM, SERUM 9.4 mg/dL (8.5-10.1); CREATININE 1.1 mg/dL (0.6-1.3); POTASSIUM 3.8 mmol/L (3.5-5.1)
--- NOTE | 2020-12-31 13:51 | NUR ---
us at bedside
--- NOTE | 2020-12-31 15:10 | NUR ---
Patient discharged to home in stable condition. Written and verbal after care instructions given. Patient verbalizes understanding of instruction. Pt ambulatory with a steady gait
[2020-12-31 15:11] VITALS: BP 157/95
== END 2020-12-31 15:12 | disposition home or self-care (01) ==
LOC: ER 12:33
DX: S40.021A Contusion of right upper arm, initial encounter (principal); I10 Essential (primary) hypertension; Z91.018 Allergy to other foods; Z60.2 Problems related to living alone; Z79.899 Other long term (current) drug therapy; X58.XXXA Exposure to other specified factors, initial encounter; Y93.89 Activity, other specified; Y92.89 Other specified places as the place of occurrence of the external cause; Y99.8 Other external cause status
CPT/HCPCS: 36415; 80048-TC; 85025-TC; 85730-TC; 93930-TC

== ENCOUNTER 2021-01-10 11:05 | Outpatient (CLI) | payer BC ==
[2021-01-10 12:33] LABS: ALBUMIN 3.6 g/dL (3.4-5.0); BILIRUBIN,TOTAL 0.3 mg/dL (0.2-1.0); CALCIUM, SERUM 9.2 mg/dL (8.5-10.1); CREATININE 1.2 mg/dL (0.6-1.3); POTASSIUM 4.1 mmol/L (3.5-5.1)
[2021-01-10 12:44] LABS: FREE T4 (FREE THYROXINE) 0.84 ng/dL (0.76-1.46); THYROID STIMULATING HORMONE 2.707 uIU/mL (0.358-3.74)
[2021-01-10 14:14] LABS: HEMATOCRIT 44 % (33-45); PLATELET COUNT (AUTO) 144 /CMM (150-450)
[2021-01-10 14:18] LABS: BASOPHILS # (AUTO) 0.1 /CMM (0.0-0.2); BASOPHILS % (AUTO) 0.4 % (0.0-2.0); EOSINOPHILS % (AUTO) 1.7 % (0.0-6.0); HEMOGLOBIN 14.6 g/dL (11.5-14.8); LYMPHOCYTES # (AUTO) 1.8 /CMM (0.8-4.8); LYMPHOCYTES % (AUTO) 11.7 % (20.0-44.0); MEAN CORPUSCULAR HGB CONC 33 g/dl (31.0-36.0); MEAN CORPUSCULAR VOLUME 89 fL (82-100); MONOCYTES # (AUTO) 0.7 /CMM (0.1-1.30); MONOCYTES % (AUTO) 4.7 % (2.0-12.0); NEUTROPHILS # (AUTO) 12.3 /CMM (1.8-8.9); NEUTROPHILS % (AUTO) 81.5 % (43.0-81.0); RED BLOOD CELL COUNT(AUTO) 4.97 MIL/uL (4.0-5.2); WHITE BLOOD COUNT (AUTO) 15.1 K/uL (4.3-11.0)
[2021-01-11 08:07] LABS: T3, FREE 2.5 pg/mL (2.0-4.4)
== END 2021-01-10 23:59 | disposition home or self-care (01) ==
LOC: LAB 11:05
PROVIDERS: ATTEND Family Medicine
DX: E78.2 Mixed hyperlipidemia (principal); R73.9 Hyperglycemia, unspecified; R07.9 Chest pain, unspecified; I82.401 Acute embolism and thrombosis of unspecified deep veins of right lower extremity
CPT/HCPCS: 36415; 80053-TC; 80061-TC; 82306; 84439-TC; 84443-TC; 84481; 85025-TC; 86376; 86800; 93971-TC